=== PATIENT | female | born 1945 | race Hispanic/Latino ===

== ENCOUNTER → 2017-12-09 | Outpatient (CLI) | payer OTHER | LOC: RAH 07:55 | PROVIDERS: ATTEND Family Medicine | DX: Z12.31 Encounter for screening mammogram for malignant neoplasm of breast (principal) | CPT/HCPCS: 77067 ==

== ENCOUNTER 2023-01-03 20:44 | Emergency (ER) | payer OTHER ==
[~2023-01-03] VITALS: Ht 154.9 cm; Wt 72.6 kg
== END 2023-01-03 23:00 ==
LOC: EDH 20:44
DX: I46.9 Cardiac arrest, cause unspecified (principal)
CPT/HCPCS: 92950; 99291